=== PATIENT | male | born 1995 | race Caucasian/White ===

== ENCOUNTER 2018-01-19 11:50 | Day surgery (SDC) | payer OTHER ==
[2018-01-19] MEDS ORDERED: LACTATED RINGERS 1,000 ML IV ONE ×2 (12:01→15:13)
[2018-01-19] MEDS ORDERED: ceFAZolin 2 GM/50 ML 2 GM/50 ML BAG IV ONE (12:06)
[2018-01-19] MEDS ORDERED: BUPIVACAINE 0.5% PF 30 ML VIAL ONE (12:13)
[2018-01-19] MEDS ORDERED: ONDANSETRON 4 MG/2 ML VIAL ONE (12:51)
--- NOTE | 2018-01-19 13:09 | ANESTHESIA ---
Pre-Anesthesia VS, & Labs - Diagnosis right spigelian hernia - Procedure right spigelian herniaorraphy Vital Signs: Temp Pulse Resp BP Pulse Ox 36.7 C 86 16 141/75 H 100 01/19/18 12:24 01/19/18 12:24 01/19/18 12:24 01/19/18 12:24 01/19/18 12:24 Height 5 ft 9 in Weight (kg) 85.3 kg - NPO >8 hours Home Medications and Allergies Home Medications: Ambulatory Orders No Known Home Medications 01/19/18 No Known Home Medications 01/19/18 Allergies/Adverse Reactions: Allergies Allergy/AdvReac Type Severity Reaction Status Date / Time No Known Drug Allergies Allergy Verified 01/19/18 13:01 Anes History & Medical History - Medical History Cardiovascular: reports: None Pulmonary: reports: None Gastrointestinal: reports: None Musculoskeletal: reports: None Endocrine/Autoimmune: reports: None Skin: reports: None - Surgical History Eyes Ears Nose Throat (EENT): Other (left ear surgery, local in office) Exam General: Alert, Oriented x3 Mouth Openin Fingerbreadth Mallampati classification: II Thyromental Distance: greater than 6 cm Respiratory: Lungs clear Cardiovascular: Regular rate, Normal S1, Normal S2 Mental/Cognitive Status: Alert/Oriented X3 Plan Anesthesia Type: General Consent for Procedure(s) Verified and Reviewed: Yes Code Status: Attempt Resuscitation ASA classification: 1-Healthy patient Is this case an emergency?: No
[2018-01-19] MEDS ORDERED: ROCURONIUM 50 MG/5 ML VIAL IVP ONE (13:45)
[2018-01-19] MEDS ORDERED: NEOSTIGMINE 1 MG/1 ML 10 ML MDV IVP ONE (13:45)
[2018-01-19] MEDS ORDERED: ONDANSETRON 4 MG/2 ML VIAL IVP ONE (13:45)
[2018-01-19] MEDS ORDERED: DEXAMETHASONE 4 MG/ML VIAL IVP ONE (13:45)
[2018-01-19] MEDS ORDERED: MIDAZOLAM 2 MG/2 ML VIAL IVP ONE (13:45)
[2018-01-19] MEDS ORDERED: LIDOCAINE-MPF 2% 5 ML VIAL IM ONE (13:45)
[2018-01-19] MEDS ORDERED: GLYCOPYRROLATE 1 MG/5 ML VIAL IVP ONE (13:45)
[2018-01-19] MEDS ORDERED: KETOROLAC 30 MG/ML VIAL IVP ONE (13:45)
[2018-01-19] MEDS ORDERED: PROPOFOL 200 MG/20 ML VIAL IVP ONE (13:45)
[2018-01-19] MEDS ORDERED: fentaNYL 100 MCG/2 ML VIAL IVP ONE (13:45)
[2018-01-19] MEDS ORDERED: BUPIVACAINE 0.5% PF 30 ML VIAL SUBQ ONE (14:23)
[2018-01-19] MEDS ORDERED: HYDROcod/ACETAM 5/325 MG TABLET PO PRN (15:40)
[2018-01-19] MEDS ORDERED: HYDROmorphone 0.5 MG/0.5 ML SYRINGE IVP PRN (15:40)
[2018-01-19] MEDS ORDERED: ONDANSETRON 4 MG/2 ML VIAL IVP PRN (15:40)
--- NOTE | 2018-01-19 15:43 | OPERATIVE REPORT ---
Operative Report - General Planned Procedure: RIGHT Spigelian herniorrhaphy Pre-Op Diagnosis: RIGHT Spigelian hernia Procedure Performed: Laparoscopic RIGHT Spigelian herniorrhaphy using mesh, umbilical herniorrhaphy Post Op Diagnosis: RIGHT Spigelian hernia, umbilical hernia - Procedure Note Primary Surgeon: Shantanu Agosto MD Anesthesia Provider: Clau Olmos CRNA Anesthesia Technique: General ET tube, Local (30 mL 1/2% marcaine) IV Fluids (mL): 1,300 Estimated Blood Loss (mL): 5 Urine Output (mL): 1,000 Complications: None. - Other Other Information/Narrative: OPERATIVE DESCRIPTION/REPORT: After verbal and written informed consent was obtained detailing the risks of infection, bleeding with all of its risks including transfusion, common bile duct injury, and the patient was brought to the operative suite and placed in the supine position on the operating room table. Monitoring devices were applied along with TEDs and pneumatic compressive stockings. Care was taken to avoid pressure points. Prophylactic antibiotics were given. An adequate level of general endotracheal anesthesia was established by [name]. The abdomen was then prepped with ChloraPrep and draped in a sterile fashion. A "time in" then confirmed that the patient was identified with 3 identifiers (name, date and medical record number), the history and physical was in the chart, the signed consent confirming the procedure was in the chart, the patient was in the correct position, the aforementioned prophylactic measures were in place or given, we had the correct personnel and equipment to complete the procedure and that anesthesia, surgery and nursing were given an opportunity to express any concerns. The initial incision was at the umbilicus and dissection to a small umbilical hernia was completed using blunt dissection. In this defect was inserted a 5 mm port. The skin was secured about the port with a towel clip. The abdomen was then insufflated with CO2 to a standard state pressure of 15 mmHg. A 5 mm 30 degree laparoscope was then inserted in the right mid abdomen under direct vision and without incident and examination of the abdomen commenced. Immediately apparent, was that the bladder was enormous and when I had the nurses place a catheter with >1000 mL drained. Examination of the anterior abdominal wall on the right-hand side revealed adherent omentum to a small defect in the anterior abdominal wall that was clearly not large enough to admit the omentum. This was at the site of the semilunaris line and it was clear to see why this was determined to be a Spigelian hernia. The adherent fat was taken down using a combination of traction and countertraction as well as some sharp dissection. I determined that the best course of action would be to fix the small defect with a small mesh patch. A Ventralex ST Hernia Patch 1.7 inch diameter (Ref#[id number], Lot#[id number], Use by 2019-10-18) was obtained and a 2-0 Vicryl stitch was placed in the center of the mesh on the nontreated side with the suture left long and placed into the abdomen using the umbilical site by temporarily removing the port. The port was then reinserted. A small stab incision was made overlying the small fascial defect confirming the location by indenting the area with my index finger and through the small stab incision was placed a suture passer grabbing the suture that had been placed in the mesh and bringing it out through the anterior abdominal wall and skin. This had the effect of centering the mesh over the defect. The mesh was then secured in place using a laparoscopic tacker. When complete please note the fascial defect was covered with a more than adequate margin circumferentially. Please note photographs were taken of all of this. All sites were injected using half percent Marcaine at a fascial, subcutaneous, and skin level using half percent Marcaine. The fascia at the umbilicus was reapproximated using a czzadt-yf-brslk 0 Vicryl suture thus closing the fascia and repairing the hernia. The skin at each port site was approximated using a subcuticular 4-0 Monocryl. The surgical count of instruments, needles and sponges was reported as correct twice. Mastisol, Steri-Strips and sterile surgical dressings were applied. The patient was then awakened from anesthesia, extubated, and having tolerated the procedure well, was transported to the recovery room. No complications were encountered. A "time out" confirmed the operation performed, the fluids given, the estimated blood loss and anesthesia, surgery and nursing were given an opportunity to express any concerns. Dragon disclaimer: This document was created in part using voice recognition technology. Because of the inherent limitations of the system ([employer]'s [employer] user manual states that the licensee understands that speech recognition is a statistical process and that recognition errors are inherent in the process), occasional same sounding word substitutions and grammatical errors do occur and persist despite proofreading. Please read this document for context. DRAFT DRAFT DRAFT
[2018-01-19] MEDS ORDERED: HYDROcod/ACETAM 5/325 MG TABLET ONE (16:19)
[2018-01-19 16:37] VITALS: BP 131/85
== END 2018-01-19 11:51 | disposition home or self-care (01) ==
LOC: SDS 11:50
PROVIDERS: ATTEND Surgery
PROC: 0WUF4JZ Supplement Abdominal Wall with Synthetic Substitute, Percutaneous Endoscopic Approach (ICD-10-PCS; principal; 2018-01-19 13:15)
DX: K43.9 Ventral hernia without obstruction or gangrene (principal); K42.9 Umbilical hernia without obstruction or gangrene; Z87.891 Personal history of nicotine dependence
CPT/HCPCS: 49652; A9270; C1781; J0690; J7120

== ENCOUNTER 2018-02-21 17:26 | Emergency (ER) | payer OTHER ==
--- NOTE | 2018-02-21 17:57 | ED Physician Documentation ---
PD HPI ABD PAIN - Stated complaint Stated Complaint: ABD PX POST OP 5WKS - Chief complaint Chief Complaint: Abd Pain - History obtained from History obtained from: Patient - History of Present Illness Timing - onset: Today, Yesterday Timing - duration: Days (1-2) Timing - details: Gradual onset (noted some mild intermittent pains around incision site right lower abd the past couple of days. Is 5 weeks post op for hernia repair. Had been healing okay. Had been doing little activity/light, and is starting to do more active lately. No fevers. No redness/drainage. Has had couple days of feeling some sore throat, malaise, aching, chills.), Still present Quality: Cramping, Aching Location: RLQ Worsened by: Moving, Palpation Associated symptoms: No: Fever, Nausea, Vomiting, Dysuria Review of Systems Constitutional: reports: Chills, Myalgias. denies: Fever Nose: denies: Congestion Throat: reports: Sore throat Respiratory: denies: Cough GI: denies: Vomiting, Diarrhea, Bloody / black stool : denies: Dysuria, Frequency PD PAST MEDICAL HISTORY - Past Medical History Past Medical History: No Cardiovascular: None Respiratory: None Endocrine/Autoimmune: None GI: None HEENT: None Psych: None Musculoskeletal: None Derm: None - Past Surgical History Past Surgical History: Yes HEENT: Other - Present Medications Home Medications: Ambulatory Orders Medication Instructions Recorded Confirmed Naproxen 500 mg PO BID #20 tablet 02/21/18 - Allergies Allergies/Adverse Reactions: Allergies Allergy/AdvReac Type Severity Reaction Status Date / Time No Known Drug Allergies Allergy Verified 01/19/18 13:01 - Social History Does the pt smoke?: No Smoking Status: Never smoker Does the pt drink ETOH?: No Does the pt have substance abuse?: No - Immunizations Immunizations are current?: Yes PD ED PE NORMAL - Vitals Vital signs reviewed: Yes - General General: Alert and oriented X 3, No acute distress, Well developed/nourished - HEENT HEENT: Ears normal, Pharynx benign - Neck Neck: Supple, no meningeal sign, No adenopathy - Cardiac Cardiac: RRR, No murmur - Respiratory Respiratory: Clear bilaterally - Abdomen Abdomen: Soft, Non tender, Other (incisional sites without redness/swelling. No underlying fluctuance. ) - Back Back: No CVA TTP - Derm Derm: Normal color, Warm and dry Results - Vitals Vitals: Oxygen O2 Source Room air - Labs Labs: Laboratory Tests 02/21/18 18:30 Urine Color YELLOW Urine Clarity CLEAR Urine pH 7.0 Ur Specific [place] 1.010 Urine Protein NEGATIVE Urine Glucose (UA) NEGATIVE Urine Ketones NEGATIVE Urine Occult Blood NEGATIVE Urine Nitrite NEGATIVE Urine Bilirubin NEGATIVE Urine Urobilinogen 0.2 (NORMAL) Ur Leukocyte Esterase NEGATIVE Ur Microscopic Review NOT INDICATED Urine Culture Comments NOT INDICATED PD MEDICAL DECISION MAKING - ED course Complexity details: considered differential (I think it is adhesion pain at the site. No signs of redness nor swelling. Her other symptoms seem like general URI/viral symptoms.), d/w patient Departure - Departure Disposition: 01 Home, Self Care Clinical Impression: Postoperative lower abdominal pain, Adhesion of abdominal wall, Viral illness Condition: Stable Record reviewed to determine appropriate education?: Yes Follow-Up: AARON Johns [Provider Group] Prescriptions: Naproxen 500 mg PO BID #20 tablet Comments: I think the pain you are having in the abdomen is from scar tissue loosening up and causing some inflammation. Gentle range of motion and stretching is actually good for this to loosen up the adhesions slowly. The does not of appear to be an infection to the area. Your urine test appeared normal. I think you are having a viral type illness otherwise and agree with what you are thinking. Use some anti-inflammatories such as naproxen twice daily for the next 7-10 days. Regular activity as you had been previously directed by the surgeon. Progress activity as tolerated at this point. Discharge Date/Time: 02/21/18 19:56
[2018-02-21 18:39] LABS: BILIRUBIN,URINE NEGATIVE (NEGATIVE); GLUCOSE, URINE (UA) NEGATIVE (NEGATIVE); KETONES,URINE (UA) NEGATIVE (NEGATIVE); LEUKOCYTE ESTERASE, URINE NEGATIVE (NEGATIVE); NITRITE,URINE NEGATIVE (NEGATIVE); OCCULT BLOOD,URINE NEGATIVE (NEGATIVE); PROTEIN,URINE NEGATIVE (NEGATIVE); UROBILINOGEN,URINE 0.2 (NORMAL) E.U./dL (NORMAL)
[2018-02-21] MEDS ORDERED: NAPROXEN 250 MG TABLET PO STA (18:55)
[2018-02-21 19:24] LABS: CLARITY,URINE CLEAR (CLEAR)
[2018-02-21 19:25] VITALS: BP 126/89
== END 2018-02-21 19:56 | disposition home or self-care (01) ==
LOC: ED 17:26
DX: G89.18 Other acute postprocedural pain (principal); K66.0 Peritoneal adhesions (postprocedural) (postinfection); B34.9 Viral infection, unspecified
CPT/HCPCS: 81003; 99283; A9270; 81001; 87086

== ENCOUNTER 2018-03-15 14:45 | Outpatient (CLI) | payer OTHER ==
[~2018-03-15 14:45] MED LIST: IOVERSOL 320 100 ML VIAL IVP ONE; IOVERSOL 320 50 ML VIAL ONE
[2018-03-15] MEDS ORDERED: IOVERSOL 320 100 ML VIAL IVP ONE ×2 (14:52→16:03)
[2018-03-15 15:13] LABS: CREATININE 1.1 mg/dL (0.6-1.2)
--- NOTE | 2018-03-15 16:17 | CT Report ---
Reason: UNSPECIFIED ABDOMINAL PAIN Procedure Date: 03/15/2018 Accession Number: [id number] / [id number] Procedure: CT - Abdomen/Pelvis W/ CPT Code: FULL RESULT: EXAM: CT ABDOMEN AND PELVIS EXAM DATE: 03/15/2018 03:23 PM. CLINICAL HISTORY: UNSPECIFIED ABDOMINAL PAIN. COMPARISONS: None available. TECHNIQUE: Routine helical CT imaging was performed through the abdomen and pelvis. IV contrast: 90 ML OPTIRAY 320. Enteric contrast: No. Reconstructions: Coronal and sagittal. In accordance with CT protocol optimization, one or more of the following dose reduction techniques were utilized for this exam: automated exposure control, adjustment of mA and/or KV based on patient size, or use of iterative reconstructive technique. FINDINGS: Lung Bases: Unremarkable. Liver: Normal. No masses. Gallbladder/Bile Ducts: Unremarkable. Spleen: Normal. Pancreas: Normal. Adrenal Glands: Normal. Kidneys: Normal. No masses or hydronephrosis. Peritoneal Cavity/Bowel: Normal. No free fluid, free air or adenopathy. No masses or acute inflammatory process. The appendix is well visualized and normal. Pelvic Organs: Normal. The bladder and visualized pelvic organs are within normal limits. Vasculature: No aneurysms or other significant abnormality. Bones: No acute skeletal abnormalities. There are L5 and S1 superior endplate degenerative changes. Other: No hernias are evident. IMPRESSION: No acute intra-abdominal or intrapelvic abnormality. RADIA
== END 2018-03-15 14:46 | disposition home or self-care (01) ==
LOC: DI 14:45
PROVIDERS: ATTEND Surgery
DX: R10.9 Unspecified abdominal pain (principal)
CPT/HCPCS: 36415; 74177; 82565; Q9967

== ENCOUNTER 2018-08-02 20:27 | Emergency (ER) | payer OTHER ==
--- NOTE | 2018-08-02 21:36 | ED Physician Documentation ---
History of Present Illness - Stated complaint Stated Complaint: ALL OVER BODY PAIN - Chief complaint Chief Complaint: General - History obtained from History obtained from: Patient - History of Present Illness Timing: Other (4 months) Pain level max: 8 Pain level now: 8 Severity Comments: moderate Quality: aching, throbbing of hips, back, legs Radiates to: legs bilaterally Improved by: nothing Worsened by: nothing Associated symptoms: denies fever, chills, weakness, numbness.No gait disturbance - Additonal information Additional information: Pt was sent by his commander to the ED "to expedite an outpatient workup for his ongoing leg and back pain because he is [place] the [place] from [place] one month." His pain has not changed. He has seen PT and a doctor through the [facility] without relief. States he is here to get a scan. Review of Systems Ten Systems: 10 systems reviewed and negative Constitutional: denies: Fever, Chills GI: reports: Abdominal Pain. denies: Nausea, Vomiting : denies: Dysuria, Frequency, Hesitancy, Incontinent Skin: denies: Rash Musculoskeletal: reports: Back pain, Extremity pain. denies: Neck pain, Joint pain, Extremity swelling, Joint swelling Neurologic: denies: Focal weakness, Numbness PD PAST MEDICAL HISTORY - Past Medical History Past Medical History: No Cardiovascular: None Respiratory: None Endocrine/Autoimmune: None GI: None HEENT: None Psych: None Musculoskeletal: None Derm: None - Past Surgical History Past Surgical History: Yes HEENT: Other - Present Medications Home Medications: Ambulatory Orders Medication Instructions Recorded Confirmed RX: Naproxen 500 mg PO BID #20 tablet 02/21/18 - Allergies Allergies/Adverse Reactions: Allergies Allergy/AdvReac Type Severity Reaction Status Date / Time No Known Drug Allergies Allergy Verified 08/02/18 20:34 - Social History Does the pt smoke?: No Smoking Status: Never smoker Does the pt drink ETOH?: No Does the pt have substance abuse?: No - Immunizations Immunizations are current?: Yes PD ED PE NORMAL - Vitals Vital signs reviewed: Yes - General General: Alert and oriented X 3, No acute distress, Well developed/nourished - HEENT HEENT: Atraumatic - Neck Neck: Supple, no meningeal sign - Cardiac Cardiac: RRR - Respiratory Respiratory: No respiratory distress - Abdomen Abdomen: Soft, Non tender, Non distended - Male Male : Deferred - Rectal Rectal: Deferred - Derm Derm: Normal color, Warm and dry, No rash - Extremities Extremities: No deformity, No tenderness to palpate, Normal ROM s pain, No edema, No calf tenderness / cord - Neuro Neuro: Alert and oriented X 3 Eye Opening: Spontaneous Motor: Obeys Commands Verbal: Oriented GCS Score: 15 - Free text exam Free text exam: Pt with normal gait, normal strength 5/5 in all extremities, normal sensation, negative straight leg raises bilaterally. No midline tenderness to palpation along the vertebrae Results - Vitals Vitals: Oxygen O2 Source Room air PD MEDICAL DECISION MAKING - ED course Complexity details: considered differential, d/w patient ED course: 22 y/o M with approx 4 months of leg pain that then spread to back and abdomen. Pt well appearing with normal examination. No neuro findings or deficits. No acute infection ongoing. Likely muscular pain with straining of abdominal wall muscles due to compensation . Pt sent here for CT but not sure what CT would accomplish here as the pt has diffuse muscular pain. He needs outpatient followup as there is no emergent condition today. Departure - Departure Disposition: 01 Home, Self Care Clinical Impression: Generalized muscle ache Condition: Good Instructions: ED Chronic Pain Management, ED Muscle Aching Follow-Up: Your, doctor [Other] Comments: Your symptoms are likely due to either a spinal radiculopathy (pinched nerve in your back) and/or a muscle strain. The ED does not have advanced MRI imaging available. You should follow up with your primary doctor and see a physical therapist for your symptoms. Return to the ED if you have weakness, numbness. Discharge Date/Time: 08/02/18 21:48
[2018-08-02 21:41] VITALS: BP 139/84
== END 2018-08-02 21:48 | disposition home or self-care (01) ==
LOC: ED 20:27
DX: M79.18 Myalgia, other site (principal)
CPT/HCPCS: 80053; 83690; 85025; 99282; 99283

== ENCOUNTER 2019-01-29 12:18 | Outpatient (CLI) | payer OTHER ==
--- NOTE | 2019-01-30 23:03 | MRI Report ---
Reason: LOW BACK PAIN Procedure Date: 01/29/2019 Accession Number: [id number] / [id number] Procedure: MRI - Thoracic Spine W/O CPT Code: Final Report FULL RESULT: EXAM: MRI THORACIC SPINE WITHOUT CONTRAST EXAM DATE: 01/29/2019 12:04 PM. CLINICAL HISTORY: Low back pain. COMPARISONS: None. TECHNIQUE: Multiplanar, multisequence T1-weighted and fluid-sensitive sequences of the thoracic spine from C7 to L1 without contrast. Other: None. FINDINGS: Spinal Canal: No signal abnormality in the visualized spinal cord. Alignment: There is no spondylolisthesis. Bone Marrow: A rounded focus of T2 hyperintensity and T1 hypointensity is noted in the posterior aspect of the T2 vertebral body, most likely representing an atypical hemangioma which is a benign finding. Disk Levels/Facets: C7-T1: Unremarkable. T1-T2: Unremarkable. T2-T3: Unremarkable. T3-T4: Unremarkable. T4-T5: Unremarkable. T5-T6: Unremarkable. T6-T7: Unremarkable. T7-T8: Unremarkable. T8-T9: Unremarkable. T9-T10: Unremarkable. T10-T11: Unremarkable. T11-T12: Unremarkable. T12-L1: Unremarkable. Musculature: Normal. No edema or fatty atrophy. Other: A wedge-shaped area of consolidation is noted in the left lower lobe measuring 2.6 x 4.6 cm (image 23, series 901), suspicious for pneumonia. IMPRESSION: 1. Normal thoracic spinal cord signal intensity. 2. No abnormal bone marrow edema. 3. No degenerative changes identified. 4. Suspect a left lower lobe pneumonia. RADIA
--- NOTE | 2019-01-30 23:17 | MRI Report ---
Reason: LOW BACK PAIN Procedure Date: 01/29/2019 Accession Number: [id number] / [id number] Procedure: MRI - Lumbar Spine W/O CPT Code: Final Report FULL RESULT: EXAM: MRI LUMBAR SPINE WITHOUT CONTRAST EXAM DATE: 01/29/2019 01:14 PM CLINICAL HISTORY: Low back pain. COMPARISON: ABDOMEN/PELVIS W/ 03/15/2018 3:23 PM. TECHNIQUE: Multiplanar, multisequence T1-weighted and fluid-sensitive sequences of the lumbar spine from T10 to S1 without contrast. Other: None. FINDINGS: Spinal Canal: The conus terminates at L1. The conus medullaris and cauda equina are unremarkable. Alignment: Retrolisthesis at L3-L4 measures 1-2 mm, stable. Bone Marrow: Five [id number] lumbar vertebral bodies are confirmed on the CT. Acute Schmorl's nodes are noted at the superior L5 endplate. Moderate type I Modic endplate changes are present at L5-S1. Disk Levels/Facets: T10-T11: Unremarkable on sagittal images. T11-T12: Unremarkable on sagittal images. T12-L1: Unremarkable. L1-L2: Unremarkable. L2-L3: Unremarkable. L3-L4: A small central protrusion and annular fissure result in mild spinal canal stenosis. The foramina are patent. L4-L5: A small central and right foraminal protrusion are present but there is no spinal canal or foraminal stenosis. L5-S1: A disk bulge and bilateral facet arthropathy result in mild spinal canal stenosis. There is severe left and moderate right foraminal narrowing. The exiting left L5 nerve root is impinged. Musculature: Normal. No edema or fatty atrophy. Other: The partially visualized retroperitoneum is unremarkable. IMPRESSION: 1. Normal conus medullaris and cauda equina. 2. Type I Modic endplate changes are present at L5-S1 and an acute Schmorl's node is noted at the superior L5 endplate. 3. Degenerative changes are noted in the lower lumbar spine but there is no high-grade spinal canal stenosis. 4. Severe left foraminal narrowing is present at L5-S1 with impingement of the exiting left L5 nerve root. Comment: The following findings are so common in adults without low back pain that while we report their presence, they must be interpreted with caution and in the context of the clinical situation. (Reference Shanda et al, Spine 2001) Prevalence of findings in patients without low back pain: Disk degeneration (any evidence): 92% Disk desiccation/T2 signal loss: 83% Disk height loss: 56% Disk bulge: 64% Disk protrusion: 32% Annular tear/high intensity zone: 38% RADIA
== END 2019-01-29 12:19 | disposition home or self-care (01) ==
LOC: DI 12:18
PROVIDERS: ATTEND Student in an Organized Health Care Education/Training Program
DX: M51.26 Other intervertebral disc displacement, lumbar region (principal); M51.46 Schmorl's nodes, lumbar region
CPT/HCPCS: 72146; 72148